=== PATIENT | female | born 1990 | race Caucasian/White ===

== ENCOUNTER 2021-09-19 11:45 | Outpatient (CLI) | payer BC, SELFPAY ==
[2021-09-19 12:04] VITALS: BP 129/76; PULSE 97
[2021-09-19 12:16] VITALS: BMI 38.9
--- NOTE | 2021-09-19 13:00 | OB.TRI.HP_ITS ---
HPI - General General Date of Service: 09/19/21 HPI Narrative ARYA CAZARES, is a 31 F who presents with possible vaginal bleeding. denies ctxs or dysuria. Maternal Data Information Final KATELYN: 11/22/21 Gestational age: 30&6 [facility] Medical History (Updated 09/19/21 @ 13:[address] Omer Ward MD) Hematuria Threatened premature labor Home Medications 09/19/21 [History Last Taken 09/18/21] aspirin 81 mg capsule mg 09/19/21 [History Last Taken 09/18/21] ferrous sulfate 325 mg (65 mg iron) tablet (iron) mg 09/19/21 [History Last Taken 09/18/21] magnesium 09/19/21 [History Last Taken 09/18/21] sertraline 50 mg tablet (Zoloft) 50 mg PO DAILY 09/19/21 [History Last Taken 09/18/21] Allergy/AdvReac Type Severity Reaction Status Date / Time No Known Allergies Allergy Verified 09/19/21 12:18 Physical Exam Narrative: cvx - closed/20/-3 NST FHR Rate Baby A Baseline: 135 Variability:: Moderate Accelerations:: 15 x 15 Decelerations:: Variable NST Reactive:: Yes Uterine Activity:: Quiet Assessment & Plan (1) Threatened premature labor: (2) Hematuria: PLAN: Plan No evidence vaginal bleeding on SSE or BME Suspect hematuria - send UA & urine culture Reactive NST
[2021-09-19 13:32] LABS: Mucous, Urine 0 SEEN /hpf (<or=2+); White Blood Cells 0 SEEN /hpf (0-5)
[2021-09-19 13:58] LABS: Color, Urine Brown (Yellow); Glucose, Dipstick Normal (Normal); Ketone-Dipstick 5 mg/dl (Negative); Leukocyte Esterase-Dipstick 100 /ul (Negative); Nitrite-Dipstick Negative (Negative); Occult Blood-Urine 250 /ul (Negative); Protein-Dipstick 100 mg/dl (Negative); Specific Gravity, Urine 1.015 (1.002-1.030); Urine Bilirubin Dipstick Negative (Negative); Urine Clarity Turbid (Clear); Urine Urobilinogen Normal (Normal)
[2021-09-19 14:12] LABS: Bacteria 2+ /hpf (None Seen); Red Blood Cells-Urine > 100 SEEN /hpf (0-5); Squamous Epithelial Cells - UA 0-5 SEEN /hpf (5-10)
== END 2021-09-19 13:00 | disposition home or self-care (01) ==
LOC: WPOUT 11:56 → WP 11:57
PROVIDERS: Visit Provider Obstetrics & Gynecology
DX: O47.03 False labor before 37 completed weeks of gestation, third trimester (principal); O99.891 Other specified diseases and conditions complicating pregnancy; R31.9 Hematuria, unspecified; Z79.82 Long term (current) use of aspirin; Z3A.30 30 weeks gestation of pregnancy; Z79.899 Other long term (current) drug therapy
CPT/HCPCS: 59025; 59050; 81001; 87086; 87088; 99218; G0378

== ENCOUNTER 2021-10-18 14:15 | Outpatient (CLI) | payer BC, SELFPAY ==
[2021-10-18] VITALS (8 sets, daily range): BP systolic 129–146; BP diastolic 82–87; PULSE 78–93; TEMP 36.7; BMI 39.8
[2021-10-18 15:03] LABS: Hematocrit 31.8 % (37-47); Hemoglobin 10.9 g/dL (12.0-15.0); Mean Corp Hgb Conc 34.3 g/dL (32-36); Mean Corpuscular Hgb 30.2 pg (27.0-32.0); Mean Corpuscular Volume 88.1 fL (81-99); Mean Platelet Vol. 8.8 fl (6.2-12.0); Platelet Count 236 K/mm3 (150-450); RBC Distribution Width CV 13.5 % (11.6-14.6); RBC Distribution Width SD 43.4 fl (35.1-43.9); Red Blood Count 3.61 M/mm3 (4.2-5.4); White Blood Count 9.4 K/mm3 (4.4-11.0)
[2021-10-18 15:20] LABS: Protein:Creat Ratio 217 mg/g CRE (0-200)
[2021-10-18 15:28] LABS: Prothrombin Time (Protime)PT. 12.8 SECONDS (11.7-14.9)
[2021-10-18 15:58] LABS: AST(SGOT) 23 U/L (15-37); Alanine Aminotransfer ALT/SGPT 23 U/L (13-56); Creatinine, Serum 0.54 mg/dL (0.55-1.02); EST Glomerular Filtration Rate 140 mL/min (>60); Est Glom Filt Rate - Afr Amer 169 mL/min (>60); Estimated Creatinine Clearance 126.01 ml/min; Uric Acid 4.3 mg/dL (2.6-6.0)
--- NOTE | 2021-10-18 16:30 | OB.TRI.HP_ITS ---
HPI - General HPI Narrative ARYA CAZARES, is a 31 F at 35.0 weeks who was sent over from office visit for elevated blood pressures. Pressures ranging 130-140's / 80-90's. She is here for monitoring of blood pressure and preeclampsia labs. Maternal Data Information KATELYN Calculator Estimated Delivery Date Method Current WG Current Estimate 11/22/21 Manual 35w 0d Final KATELYN: 11/22/21 PFSH PFS Medical History Hematuria Threatened premature labor Home Medications 09/19/21 [History Last Taken 10/17/21] aspirin 81 mg capsule mg 09/19/21 [History Last Taken 10/17/21] ferrous sulfate 325 mg (65 mg iron) tablet (iron) mg 09/19/21 [History Last Taken 10/18/21] magnesium 09/19/21 [History Last Taken 10/17/21] sertraline 50 mg tablet (Zoloft) 50 mg PO DAILY 09/19/21 [History Last Taken 10/18/21] docusate sodium 250 mg capsule (Stool Softener) 250 mg PO DAILY 10/18/21 [History Last Taken Unknown] Allergy/AdvReac Type Severity Reaction Status Date / Time No Known Allergies Allergy Verified 10/18/21 14:54 Visit Details OB Flowsheet Initial Weight: Not Recorded Date -?-?-?-?-?-?-?-?-?-?-?-?- EGA Weight BP Urine Prot -?-?-?-?-?-?-?-?-?-?-?-?- Glucose FHR FuHt Pres Dilation -?-?-?-?-?-?-?-?-?-?-?-?- Effaced St Visit Note 10/18/21 -?-?-?-?-?-?-?-?-?-?-?-?- 35w 0d 225 lb 143/85 129/84 142/86 137/87 135/82 142/85 146/85 141/83 -?-?-?-?-?-?-?-?-?-?-?-?- -?-?-?-?-?-?-?-?-?-?-?-?- ROS Eyes Eyes: Denies blurry vision Cardiovascular Cardiovascular: Reports none; Denies chest pain at rest, chest pain with activity or dizziness Respiratory/Chest Respiratory/Chest: Denies cough or dyspnea Gastrointestinal Gastrointestinal: Reports none and other; Denies diarrhea or vomiting Genitourinary Genitourinary: Denies dysuria Musculoskeletal Musculoskeletal: Reports none Integumentary Integumentary: Reports none; Denies rash Neurologic Neurologic: Denies dizziness, headache(s) or other visual disturbances Psychiatric Psychiatric: Reports none Physical Exam Const alert and no apparent distress General Appearance: cooperative Orientation / Consciousness: awake Exam Limitations: no limitations HEENT normocephalic Eyes General Eye: normal appearance of both eyes Neck full ROM Chest inspection of chest normal Resp normal respiratory effort and normal air movement Effort and Inspection: symmetric chest movement Auscultation: clear to auscultation bilaterally Cardio regular rate GI soft to palpation, non-tender and non-distended Inspection: and other Back/Spine normal ROM Extremity full ROM, normal capillary refill and no calf tenderness Skin no rashes or lesions noted Neuro oriented x3 and CN's II-XII intact bilaterally Psych mental status grossly normal NST FHR Rate Baby A Baseline: 140 Variability:: Moderate Accelerations:: 15 x 15 Decelerations:: None NST Reactive:: Yes FHR Category:: Category I Uterine Activity:: irritability Assessment & Plan (1) 35 weeks gestation of : (2) Elevated blood pressure affecting , antepartum: PLAN: Plan PIH labs within normal ranges BP's ranging 130-140/ 80's Denies headache NST reactive- Category 1 tracing D/C home with follow up in office early next week Dr. Colbert notified of plan of care
== END 2021-10-18 16:37 | disposition home or self-care (01) ==
LOC: WPOUT 14:21 → WP 14:22
PROVIDERS: Visit Provider Advanced Practice Midwife
DX: O99.891 Other specified diseases and conditions complicating pregnancy (principal); R03.0 Elevated blood-pressure reading, without diagnosis of hypertension; Z3A.35 35 weeks gestation of pregnancy
CPT/HCPCS: 59025; 59050; 82565; 82570; 84156; 84450; 84460; 84550; 85027; 85610; 85730; 99218; G0378

== ENCOUNTER 2021-11-05 08:30 | Inpatient (IN) | payer BC, SELFPAY ==
[2021-11-05] VITALS (126 sets, daily range): BP systolic 121–176; BP diastolic 8–105; PULSE 74–233; RESP 16–18; TEMP 35.7–36.7; O2SAT 82–100; BMI 40.4
--- NOTE | 2021-11-05 | PLAC_PTH ---
PATIENT: ARYA CAZARES LOC: [facility] U#:[id number] AGE/SX: 31/F ROOM: WP017 RE11/05/[address]: Dr. Regine Thakkar MD : 1990 BED: 1 DIS: 11/08/2021 SPEC #: [id number] RECD: 11/06/21 02:04 STATUS: DIONICIO TREVIÑOStuart #: [id number] NICOLE: 11/05/21 00:[address]: Regine Thakkar DEPT: SURGICAL PATHOLOGY RECD BY: Erasmo Palumbo Tissues: Placenta, NOS Procedures: Surgery Specimen Level V HEADER OPERATION: Primary section PRE-OP DIAGNOSIS: Pre-eclampsia TISSUE SUBMITTED: Placenta MICROSCOPIC DIAGNOSIS Garcia placenta (512 gm): Umbilical cord ? trivascular with no inflammation. Placental membranes - No pathologic change. Placental disc ? Mando bales. AM:frank 11/07/2021 MICROSCOPIC DESCRIPTION Slides are reviewed. GROSS DESCRIPTION SPECIMEN: PLACENTA / CLINICAL INFORMATION: A. Weight: kg B. Gestational Age: weeks C. Sex: PLACENTAL WEIGHT (POST FIXATION): 512 gm PLACENTAL DIMENSIONS: 21 x 18 x 3 cm PLACENTAL SHAPE: Usual ovoid PLACENTAL WEIGHT FOR GESTATIONAL AGE: Within 10-99th percentile MEMBRANES - Present A. Insertion: Marginal B. Site of rupture from edge: 5.5 cm from edge of placental disc C. Color of membrane: Galvez-guallpa D. Abnormalities: None UMBILICAL CORD - Present A. Color: Galvez-guallpa B. Insertion: Eccentric C. Length: 47 cm D. Diameter: 1.3 cm E. Number of vessels: Three F. Abnormalities: None PLACENTAL DISC - Present A. Color of surface: Galvez-guallpa B. surface abnormalities: None C. Maternal cotyledons: Intact with minimal tears D. Attached retro placental clot: No clot E. Cut surface: Dark red and spongy F. Lesions: None G. Separate clot: 5 x 3 x 1.5 cm SECTIONS SUBMITTED: 1. Umbilical cord ( end notched) 2. Umbilical cord, placental end 3. Membrane roll 4. Placental disc, and maternal surfaces 5. Placental disc, and maternal surfaces 6. Placental disc, and maternal surfaces AM:frank 11/06/2021 TC:5 CPT: 66391
[2021-11-05] MEDS: 0.9% Saline Lock 10 ML Syringe IV (09:11)
[2021-11-05 09:25] LABS: Absolute Lymphocyte Count 1.44 X10^3/uL (0.83-4.51); Absolute Neutrophil Count 6.1 X10^3/uL (2.0-7.7); Basophil# 0.01 X10^3/uL; Basophil% 0.1 % (0-1); Eosinophil# 0.07 X10^3/uL; Eosinophils% 0.9 % (0-5); Hematocrit 33.7 % (37-47); Hemoglobin 11.5 g/dL (12.0-15.0); Lymphocyte # 1.44 X10^3/ul (0.83-4.51); Lymphocyte % 17.7 % (19-41); Mean Corp Hgb Conc 34.1 g/dL (32-36); Mean Corpuscular Hgb 30.2 pg (27.0-32.0); Mean Corpuscular Volume 88.5 fL (81-99); Mean Platelet Vol. 9.4 fl (6.2-12.0); Monocyte# 0.48 X10^3/uL; Monocyte% 5.9 % (0-10); NRBC Flagged by Analyzer 0 % (0-5); Neutrophil # 6.09 X10^3/uL (2.7-7.7); Neutrophil % 74.8 % (47-70); Platelet Count 228 K/mm3 (150-450); RBC Distribution Width CV 13.8 % (11.6-14.6); RBC Distribution Width SD 44.7 fl (35.1-43.9); Red Blood Count 3.81 M/mm3 (4.2-5.4); White Blood Count 8.1 K/mm3 (4.4-11.0)
[2021-11-05] MEDS: miSOPROStol 25 MCG TABLET VAGINAL (10:09)
[2021-11-05] MEDS: Mag Hydrox/Al Hydrox/Simeth 30 ML UDC PO (10:55)
[2021-11-05 13:12] LABS: ALB/GLOB Ratio 0.8 RATIO (0.9-2.4); AST(SGOT) 19 U/L (15-37); Alanine Aminotransfer ALT/SGPT 24 U/L (13-56); Albumin, Serum 2.7 g/dL (3.2-5.0); Alkaline Phosphatase 110 U/L (45-117); Anion Gap 10 (5-15); BUN 6 mg/dL (7-18); BUN/Creat Ratio 8.7 RATIO (10-20); Calcium,Total 8.9 mg/dL (8.5-10.1); Chloride 110 mmol/L (98-107); Creatinine, Serum 0.69 mg/dL (0.55-1.02); EST Glomerular Filtration Rate 106 mL/min (>60); Est Glom Filt Rate - Afr Amer 128 mL/min (>60); Estimated Creatinine Clearance 98.62 ml/min; Globulin 3.5 g/dL (2.2-4.2); Glucose 104 mg/dL (74-106); Potassium 3.7 mmol/L (3.5-5.1); Protein, Total 6.2 g/dL (6.4-8.2); Sodium Level 141 mmol/L (136-145)
[2021-11-05] MEDS: miSOPROStol 25 MCG TABLET 50 MCG VAGINAL (14:13)
[2021-11-05] MEDS: Labetalol (Prefilled) 20 MG/4 ML IV (14:35)
[2021-11-05] MEDS: Lactated Ringers 1,000 ML 15 ML IV (14:35)
[2021-11-05] MEDS: Magnesium Sulfate 4gm/100mL 4 GM/100 ML IV.SOLN. IV (14:41)
[2021-11-05] MEDS: Magnesium Sulfate 4gm/100mL 2 GM/50 ML IV.SOLN. IV (14:59)
[2021-11-05] MEDS: Labetalol (Prefilled) 20 MG/4 ML 40 MG IV (15:11)
[2021-11-05] MEDS: Magnesium Sulfate 20 GM/500 ML BAG IV (15:16)
[2021-11-05] MEDS: Ondansetron 4 MG/2 ML Vial IV (15:27)
[2021-11-05] MEDS: Labetalol 200 MG Tablet PO (16:08)
[2021-11-05] MEDS: Sertraline 50 MG Tablet PO (16:19)
[2021-11-05] MEDS: Acetaminophen 500 MG Tablet PO (16:28)
--- NOTE | 2021-11-05 17:32 | PCM.HP.OB ---
HPI - General General Date of Admission: 11/05/21 Date of Service: 11/05/21 Chief Complaint: hypertension in HPI Narrative ARYA CAZARES, is a 31 female 1 para 0 with a EDC of 11/22/2021 presents at 37-4/7 weeks gestation complaining of elevated blood pressures. She denied any headache or visual changes when she arrived. She had good movement. She denied any contractions. Patient now states she has a severe frontal throbbing headache not relieved with Tylenol and ice packs. She denies any visual changes. Maternal Data Information KATELYN Calculator Estimated Delivery Date Method Current WG Current Estimate 11/22/21 Manual 37w 4d Final KATELYN: 11/13/21 Gestational age: 37 4/7 [facility] Medical History (Updated 11/05/21 @ 17:[address] Regine Thakkar MD) Anemia affecting first Anxiety COVID-19 Depression Gestational HTN Hematuria Melanoma Obesity Ovarian cyst PCOS (polycystic ovarian syndrome) PTSD (post-traumatic stress disorder) Threatened premature labor Uterine polyp Home Medications 1 tab PO/SL DAILY 09/19/21 [History Last Taken 11/04/21 08:00 1 tab] aspirin 81 mg capsule 81 mg PO DAILY covid in 09/19/21 [History Last Taken 11/03/21 22:00 1 tab] ferrous sulfate 325 mg (65 mg iron) tablet (iron) 325 mg PO DAILY anemia 09/19/21 [History Last Taken 11/05/21 08:00 1 tab] sertraline 50 mg tablet (Zoloft) 50 mg PO DAILY anxiety/depression 09/19/21 [History Last Taken 11/04/21 14:00 1 tab] docusate sodium 250 mg capsule (Stool Softener) 250 mg PO DAILY constipation 10/18/21 [History Last Taken 11/04/21 08:00 1 tab] Allergy/AdvReac Type Severity Reaction Status Date / Time No Known Allergies Allergy Verified 10/18/21 14:54 Surgical History (Updated 11/05/21 @ 10:17 by Sabra Petersen) H/O dilation and curettage H/O laparoscopy [place] teeth extracted Social History Smoking Status: Never smoker History Elective abortions Hx Para 0 Spontaneous abortions Hx # Term Pregnancies Ectopic pregnancies Hx # Pregnancies Multiple births # of living children ROS ROS Narrative + Headache Constitutional Constitutional: Denies fatigue, fever(s) or malaise Eyes Eyes: Denies change in vision ENT HEENT: Denies dizziness or headache(s) Cardiovascular Cardiovascular: Denies chest pain, dyspnea or lightheadedness Respiratory/Chest Respiratory/Chest: Denies cough or dyspnea Gastrointestinal Gastrointestinal: Denies change in bowel habits Genitourinary Genitourinary: Denies burning urination or genital lesions Integumentary Integumentary: Denies rash Neurologic Neurologic: Denies confusion, numbness or weakness Vital Signs Vital Signs Vital Signs: 11/05/21 08:58 11/05/21 08:58 11/05/21 09:02 Temperature Temperature Source Pulse Rate 102 H 104 H Respiratory Rate Respiratory Effort Respiratory Depth Respiratory Pattern Blood Pressure 176/105 H Blood Pressure Mean BP Systolic 176 BP Diastolic 105 Blood Pressure Source Blood Pressure Position Blood Pressure Location Pulse Ox Oxygen Delivery Method 11/05/21 09:02 11/05/21 08:59 11/05/21 08:59 Temperature Temperature Source Temporal Pulse Rate Respiratory Rate Respiratory Effort Respiratory Depth Respiratory Pattern Blood Pressure Blood Pressure Mean BP Systolic BP Diastolic Blood Pressure Source Blood Pressure Position Blood Pressure Location Pulse Ox 99 99 Oxygen Delivery Method 11/05/21 08:59 11/05/21 09:13 11/05/21 09:13 Temperature 97.7 F L Temperature Source Pulse Rate 101 H Respiratory Rate Respiratory Effort Respiratory Depth Respiratory Pattern Blood Pressure 168/104 H Blood Pressure Mean BP Systolic 168 BP Diastolic 104 Blood Pressure Source Blood Pressure Position Blood Pressure Location Pulse Ox Oxygen Delivery Method 11/05/21 09:30 11/05/21 09:30 11/05/21 09:51 Temperature Temperature Source Pulse Rate 93 Respiratory Rate Respiratory Effort Respiratory Depth Respiratory Pattern Blood Pressure 145/96 H 168/103 H Blood Pressure Mean BP Systolic 145 168 BP Diastolic 96 103 Blood Pressure Source Blood Pressure Position Blood Pressure Location Pulse Ox Oxygen Delivery Method 11/05/21 09:51 11/05/21 10:07 11/05/21 10:07 Temperature Temperature Source Pulse Rate 99 94 Respiratory Rate Respiratory Effort Respiratory Depth Respiratory Pattern Blood Pressure 159/93 H Blood Pressure Mean BP Systolic 159 BP Diastolic 93 Blood Pressure Source Blood Pressure Position Blood Pressure Location Pulse Ox Oxygen Delivery Method 11/05/21 10:22 11/05/21 10:22 11/05/21 10:36 Temperature Temperature Source Pulse Rate 90 Respiratory Rate Respiratory Effort Respiratory Depth Respiratory Pattern Blood Pressure 144/95 H 150/97 H Blood Pressure Mean BP Systolic 144 150 BP Diastolic 95 97 Blood Pressure Source Blood Pressure Position Blood Pressure Location Pulse Ox Oxygen Delivery Method 11/05/21 10:36 11/05/21 11:47 11/05/21 11:47 Temperature Temperature Source Pulse Rate 90 86 Respiratory Rate Respiratory Effort Respiratory Depth Respiratory Pattern Blood Pressure 144/99 H Blood Pressure Mean BP Systolic 144 BP Diastolic 99 Blood Pressure Source Blood Pressure Position Blood Pressure Location Pulse Ox Oxygen Delivery Method 11/05/21 11:51 11/05/21 11:51 11/05/21 12:48 Temperature Temperature Source Pulse Rate 97 Respiratory Rate Respiratory Effort Respiratory Depth Respiratory Pattern Blood Pressure 139/105 H Blood Pressure Mean BP Systolic 139 BP Diastolic 105 Blood Pressure Source Blood Pressure Position Blood Pressure Location Pulse Ox 97 Oxygen Delivery Method 11/05/21 12:48 11/05/21 12:48 11/05/21 12:50 Temperature Temperature Source Temporal Pulse Rate 86 89 Respiratory Rate Respiratory Effort Respiratory Depth Respiratory Pattern Blood Pressure Blood Pressure Mean BP Systolic BP Diastolic Blood Pressure Source Blood Pressure Position Blood Pressure Location Pulse Ox Oxygen Delivery Method 11/05/21 12:50 11/05/21 12:48 11/05/21 14:08 Temperature 97.5 F L Temperature Source Pulse Rate 103 H Respiratory Rate Respiratory Effort Respiratory Depth Respiratory Pattern Blood Pressure Blood Pressure Mean BP Systolic BP Diastolic Blood Pressure Source Blood Pressure Position Blood Pressure Location Pulse Ox 97 Oxygen Delivery Method 11/05/21 14:08 11/05/21 14:05 11/05/21 14:10 Temperature Temperature Source Temporal Pulse Rate Respiratory Rate Respiratory Effort Respiratory Depth Respiratory Pattern Blood Pressure 170/102 H Blood Pressure Mean BP Systolic 170 BP Diastolic 102 Blood Pressure Source Blood Pressure Position Blood Pressure Location Pulse Ox 98 Oxygen Delivery Method 11/05/21 14:10 11/05/21 14:05 11/05/21 14:25 Temperature 97.7 F L Temperature Source Pulse Rate 98 Respiratory Rate Respiratory Effort Respiratory Depth Respiratory Pattern Blood Pressure 163/101 H Blood Pressure Mean BP Systolic 163 BP Diastolic 101 Blood Pressure Source Blood Pressure Position Blood Pressure Location Pulse Ox Oxygen Delivery Method 11/05/21 14:25 11/05/21 14:40 11/05/21 14:40 Temperature Temperature Source Pulse Rate 96 98 Respiratory Rate Respiratory Effort Respiratory Depth Respiratory Pattern Blood Pressure 149/92 H Blood Pressure Mean BP Systolic 149 BP Diastolic 92 Blood Pressure Source Blood Pressure Position Blood Pressure Location Pulse Ox Oxygen Delivery Method 11/05/21 14:42 11/05/21 14:42 11/05/21 14:44 Temperature Temperature Source Pulse Rate 233 H 99 Respiratory Rate Respiratory Effort Respiratory Depth Respiratory Pattern Blood Pressure Blood Pressure Mean BP Systolic BP Diastolic Blood Pressure Source Blood Pressure Position Blood Pressure Location Pulse Ox 82 Oxygen Delivery Method 11/05/21 14:44 11/05/21 14:47 11/05/21 14:47 Temperature Temperature Source Pulse Rate 98 Respiratory Rate Respiratory Effort Respiratory Depth Respiratory Pattern Blood Pressure 157/95 H Blood Pressure Mean BP Systolic 157 BP Diastolic 95 Blood Pressure Source Blood Pressure Position Blood Pressure Location Pulse Ox 97 Oxygen Delivery Method 11/05/21 14:49 11/05/21 14:49 11/05/21 14:54 Temperature Temperature Source Pulse Rate 100 96 Respiratory Rate Respiratory Effort Respiratory Depth Respiratory Pattern Blood Pressure Blood Pressure Mean BP Systolic BP Diastolic Blood Pressure Source Blood Pressure Position Blood Pressure Location Pulse Ox 97 Oxygen Delivery Method 11/05/21 14:54 11/05/21 14:58 11/05/21 14:58 Temperature Temperature Source Pulse Rate 96 Respiratory Rate Respiratory Effort Respiratory Depth Respiratory Pattern Blood Pressure Blood Pressure Mean BP Systolic BP Diastolic Blood Pressure Source Blood Pressure Position Blood Pressure Location Pulse Ox 97 94 Oxygen Delivery Method 11/05/21 14:58 11/05/21 14:59 11/05/21 14:59 Temperature Temperature Source Pulse Rate 97 Respiratory Rate Respiratory Effort Respiratory Depth Respiratory Pattern Blood Pressure 163/92 H Blood Pressure Mean BP Systolic 163 BP Diastolic 92 Blood Pressure Source Blood Pressure Position Blood Pressure Location Pulse Ox 97 Oxygen Delivery Method 11/05/21 15:04 11/05/21 15:04 11/05/21 15:07 Temperature Temperature Source Pulse Rate 100 Respiratory Rate Respiratory Effort Respiratory Depth Respiratory Pattern Blood Pressure 159/92 H Blood Pressure Mean BP Systolic 159 BP Diastolic 92 Blood Pressure Source Blood Pressure Position Blood Pressure Location Pulse Ox 97 Oxygen Delivery Method 11/05/21 15:07 11/05/21 15:09 11/05/21 15:09 Temperature Temperature Source Pulse Rate 96 100 Respiratory Rate Respiratory Effort Respiratory Depth Respiratory Pattern Blood Pressure Blood Pressure Mean BP Systolic BP Diastolic Blood Pressure Source Blood Pressure Position Blood Pressure Location Pulse Ox 96 Oxygen Delivery Method 11/05/21 15:14 11/05/21 15:14 11/05/21 15:19 Temperature Temperature Source Pulse Rate 98 92 Respiratory Rate Respiratory Effort Respiratory Depth Respiratory Pattern Blood Pressure Blood Pressure Mean BP Systolic BP Diastolic Blood Pressure Source Blood Pressure Position Blood Pressure Location Pulse Ox 96 Oxygen Delivery Method 11/05/21 15:19 11/05/21 15:21 11/05/21 15:21 Temperature Temperature Source Pulse Rate 92 Respiratory Rate Respiratory Effort Respiratory Depth Respiratory Pattern Blood Pressure Blood Pressure Mean BP Systolic BP Diastolic Blood Pressure Source Blood Pressure Position Blood Pressure Location Pulse Ox 97 94 Oxygen Delivery Method 11/05/21 15:24 11/05/21 15:24 11/05/21 15:26 Temperature Temperature Source Pulse Rate 91 Respiratory Rate Respiratory Effort Respiratory Depth Respiratory Pattern Blood Pressure 144/88 H Blood Pressure Mean BP Systolic 144 BP Diastolic 88 Blood Pressure Source Blood Pressure Position Blood Pressure Location Pulse Ox 96 Oxygen Delivery Method 11/05/21 15:26 11/05/21 15:29 11/05/21 15:29 Temperature Temperature Source Pulse Rate 89 95 Respiratory Rate Respiratory Effort Respiratory Depth Respiratory Pattern Blood Pressure Blood Pressure Mean BP Systolic BP Diastolic Blood Pressure Source Blood Pressure Position Blood Pressure Location Pulse Ox 97 Oxygen Delivery Method 11/05/21 15:34 11/05/21 15:34 11/05/21 15:36 Temperature Temperature Source Pulse Rate 95 Respiratory Rate Respiratory Effort Respiratory Depth Respiratory Pattern Blood Pressure 146/91 H Blood Pressure Mean BP Systolic 146 BP Diastolic 91 Blood Pressure Source Blood Pressure Position Blood Pressure Location Pulse Ox 95 Oxygen Delivery Method 11/05/21 15:36 11/05/21 15:36 11/05/21 15:39 Temperature Temperature Source Pulse Rate 90 94 Respiratory Rate Respiratory Effort Respiratory Depth Respiratory Pattern Blood Pressure Blood Pressure Mean BP Systolic BP Diastolic Blood Pressure Source Blood Pressure Position Blood Pressure Location Pulse Ox 94 Oxygen Delivery Method 11/05/21 15:39 11/05/21 15:47 11/05/21 15:47 Temperature Temperature Source Pulse Rate 90 Respiratory Rate Respiratory Effort Respiratory Depth Respiratory Pattern Blood Pressure 139/89 H Blood Pressure Mean BP Systolic 139 BP Diastolic 89 Blood Pressure Source Blood Pressure Position Blood Pressure Location Pulse Ox 96 Oxygen Delivery Method 11/05/21 15:56 11/05/21 15:56 11/05/21 16:06 Temperature Temperature Source Pulse Rate 89 Respiratory Rate Respiratory Effort Respiratory Depth Respiratory Pattern Blood Pressure 138/85 H 140/81 H Blood Pressure Mean BP Systolic 138 140 BP Diastolic 85 81 Blood Pressure Source Blood Pressure Position Blood Pressure Location Pulse Ox Oxygen Delivery Method 11/05/21 16:06 11/05/21 16:11 11/05/21 16:11 Temperature Temperature Source Pulse Rate 88 91 Respiratory Rate Respiratory Effort Respiratory Depth Respiratory Pattern Blood Pressure Blood Pressure Mean BP Systolic BP Diastolic Blood Pressure Source Blood Pressure Position Blood Pressure Location Pulse Ox 94 Oxygen Delivery Method 11/05/21 16:16 11/05/21 16:16 11/05/21 16:31 Temperature Temperature Source Pulse Rate 92 Respiratory Rate Respiratory Effort Respiratory Depth Respiratory Pattern Blood Pressure 141/83 H 155/88 H Blood Pressure Mean BP Systolic 141 155 BP Diastolic 83 88 Blood Pressure Source Blood Pressure Position Blood Pressure Location Pulse Ox Oxygen Delivery Method 11/05/21 16:31 11/05/21 16:31 11/05/21 16:31 Temperature 97.5 F L Temperature Source Temporal Pulse Rate 91 Respiratory Rate Respiratory Effort Respiratory Depth Respiratory Pattern Blood Pressure Blood Pressure Mean BP Systolic BP Diastolic Blood Pressure Source Blood Pressure Position Blood Pressure Location Pulse Ox Oxygen Delivery Method 11/05/21 16:46 11/05/21 16:46 11/05/21 17:02 Temperature Temperature Source Pulse Rate 86 Respiratory Rate Respiratory Effort Respiratory Depth Respiratory Pattern Blood Pressure 147/86 H 137/79 H Blood Pressure Mean BP Systolic 147 137 BP Diastolic 86 79 Blood Pressure Source Blood Pressure Position Blood Pressure Location Pulse Ox Oxygen Delivery Method 11/05/21 17:02 11/05/21 17:16 11/05/21 17:16 Temperature Temperature Source Pulse Rate 79 88 Respiratory Rate Respiratory Effort Respiratory Depth Respiratory Pattern Blood Pressure 141/84 H Blood Pressure Mean BP Systolic 141 BP Diastolic 84 Blood Pressure Source Blood Pressure Position Blood Pressure Location Pulse Ox Oxygen Delivery Method 11/05/21 17:29 11/05/21 17:29 11/05/21 14:41 Temperature Temperature Source Pulse Rate 91 Respiratory Rate 18 Respiratory Effort Respiratory Depth Respiratory Pattern Blood Pressure Blood Pressure Mean BP Systolic BP Diastolic Blood Pressure Source Blood Pressure Position Blood Pressure Location Pulse Ox 96 Oxygen Delivery Method 11/05/21 14:48 11/05/21 14:58 11/05/21 14:15 Temperature 96.3 F L Temperature Source Temporal Pulse Rate 100 95 Respiratory Rate 18 18 Respiratory Effort Normal Respiratory Depth Normal Respiratory Pattern Normal Blood Pressure 157/95 H 163/92 H Blood Pressure Mean 115 115 BP Systolic BP Diastolic Blood Pressure Source Monitor Monitor Blood Pressure Position Sitting Semi-Fowlers Blood Pressure Location Right Arm Right Arm Pulse Ox 97 94 Oxygen Delivery Method Room Air Room Air 11/05/21 15:26 Temperature Temperature Source Pulse Rate 89 Respiratory Rate 16 Respiratory Effort Respiratory Depth Respiratory Pattern Blood Pressure 144/88 H Blood Pressure Mean 106 BP Systolic BP Diastolic Blood Pressure Source Monitor Blood Pressure Position Blood Pressure Location Pulse Ox 96 Oxygen Delivery Method Room Air Weight Weight: 103.6 kg Body Mass Index (BMI) 40.4 Physical Exam Const alert and no apparent distress General Appearance: cooperative HEENT normocephalic Resp normal respiratory effort Cardio regular rate GI soft to palpation GI Narrative: gravid, nontender, appropriate for gestational age Extremity no calf tenderness General Extremity: edema Skin no wounds Rashes: No rashes noted Psych activity/motor behavior normal Labs Labs Labs: Blood Type O POSITIVE Antibody Screen NEGATIVE Hct 33.7 % (37-47) L Hgb 11.5 g/dL (12.0-15.0) L Assessment & Plan (1) 37 weeks gestation of : PLAN: Patient now on magnesium prophylaxis for severe preeclampsia. Also received labetalol hypertensive emergency protocol medications. Cervix is still closed, patient has received 2 doses of Cytotec without any significant abdominal cramping. Patient has significant anxiety and discomfort with pelvic exams. I discussed with the patient that with severe preeclampsia and an unfavorable cervix in a nulliparous patient, there is a significantly elevated risk of primary . At this point, it would be clinically very reasonable with an LGA fetus and the above risk factors including a BMI greater than 40 to proceed with primary section. Risk benefits and alternatives to this were discussed with the patient and her , their questions were answered to their satisfaction and they desire to proceed. (2) Pre-eclampsia, severe: (3) Maternal obesity affecting , antepartum: (4) BMI 40.0-44.9, adult: (5) Unfavorable cervix in term :
[2021-11-05] MEDS: LACTATED RINGERS 500 ML 999 ML IV (19:08)
[2021-11-05] MEDS: fentaNYL-bupivacaine (epidural) 100 ML BAG EPIDURAL (19:58)
[2021-11-05] MEDS: Sodium Citrate/Citric Acid 30 ML UDC PO (20:10)
[2021-11-05] MEDS: Cefazolin 2 GM in 0.9% Normal Saline 100 ML IV (20:25)
--- NOTE | 2021-11-05 21:17 | OP.PCM_ITS ---
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 She was prepped and draped in the dorsal supine position with a leftward tilt. A Pfannenstiel skin incision was made approximately 2 cm above the symphysis pubis and carried through to underlying layer fascia with the scalpel. The fascia was incised incised in the midline and extended laterally with the Black scissors. The fascia was dissected off the rectus muscles with blunt and sharp dissection. The rectus muscles were in the midline and the peritoneum was entered bluntly. The peritoneal incision was stretched and the bladder blade was placed. The uterine incision was made in a low transverse fashion with the scalpel and extended superiorly and inferiorly with blunt dissection. The amniotic membranes were ruptured bluntly and clear amniotic fluid returned. The infant's head was brought to the incision in the flexed position and delivered without d ifficulty. The remainder of the infant was delivered with gentle traction and fundal pressure in the standard fashion. The mouth and nares were bulb suctioned. The cord was clamped and cut as the was stimulated. Cord clamping was delayed for approximately 30 seconds. The infant was handed off to the waiting nursing staff. The placenta was delivered with fundal massage and gentle traction in the standard fashion. The uterus was exteriorized and cleared of all clots and debris. The cervix was dilated with a ring forcep. The uterine incision was closed with #1 Vicryl in a running locked fashion. A second layer of the same suture was used in an imbricating fashion. 2-0 Vicryl [id number] sutures were needed near the midline and some sinuses to obtain hemostasis. The inci ramonita was examined and was found to be hemostatic. The uterus was placed back into the peritoneal cavity and hemostasis was again confirmed. The rectus muscles were examined and any bleeding was Bovie cauterized. The parietal peritoneum and rectus muscles were closed en bloc with an 0 Vicryl running suture. The surgical teams outer gloves were then changed. The rectus fascia was examined and any bleeding was Bovie cauterized and the rectus fascia was closed with looped 1 PDS suture in a running standard fashion. The subcutaneous tissue was examining and any bleeding was Bovie cauterized. The subcutaneous tissue was reapproximated with 3-0 Vicryl suture. The skin was closed in a subcuticular fashion with Monocryl suture. I performed the entire procedure with assistance. All sponge, lap, and needle counts were correct. The patient was taken to her room for recovery in a stable condition. Apgars were not available at the time of the entry of this note. Presentation: Positive for Vertex Amniotic Membrane Rupture Type: Artificial Amniotic Fluid Description: Clear Placental Delivery Description: Expressed Placenta Disposition: Sent to Pathology Cord Vessel Description: 3 Vessels Cord Entanglement: None A Gender: Male (Daxton) Delayed Cord Clamping: Yes Complications Complications: none
[2021-11-05] MEDS: Oxytocin 30 units/NS 500 ml 30 UNITS/500 ML IV.SOLN 167 UNITS IV (21:30)
[2021-11-05] MEDS: Ketorolac 30 MG/ML Syringe IV (22:25)
[2021-11-05] MEDS: Acetaminophen 500 MG Tablet 1000 MG PO (23:06)
[2021-11-06] VITALS (214 sets, daily range): BP systolic 114–135; BP diastolic 59–81; PULSE 70–127; RESP 15–20; TEMP 36.1–36.7; O2SAT 16–100
[2021-11-06] MEDS: Lactated Ringers 1,000 ML 100 ML IV (00:40)
[2021-11-06] MEDS: Magnesium Sulfate 20 GM/500 ML BAG IV ×2 (00:55→10:22)
[2021-11-06] MEDS: Acetaminophen 500 MG Tablet 1000 MG PO ×4 (04:39→22:41)
[2021-11-06] MEDS: Ketorolac 30 MG/ML Syringe IV ×3 (04:39→16:34)
[2021-11-06 06:17] LABS: Hematocrit 29.4 % (37-47); Hemoglobin 9.7 g/dL (12.0-15.0); Mean Corpuscular Hgb 29.9 pg (27.0-32.0); Mean Corpuscular Volume 90.7 fL (81-99); Platelet Count 175 K/mm3 (150-450); RBC Distribution Width SD 46.5 fl (35.1-43.9); Red Blood Count 3.24 M/mm3 (4.2-5.4); White Blood Count 11.2 K/mm3 (4.4-11.0)
[2021-11-06] MEDS: Enoxaparin 40 MG/0.4 ML Syringe SC (10:21)
[2021-11-06] MEDS: Senna/Docusate Sodium 1 Tablet PO (10:23)
[2021-11-06] MEDS: Sertraline 50 MG Tablet PO (10:23)
--- NOTE | 2021-11-06 12:12 | PCM.PROGNOTE ---
Subjective Subjective patient seen at bedside, doing well. Patient reports good pain control. lochia mild. denies ERNANDEZ, visual changes. Denies N/V. Not passing flatus yet. Breast feeding. Objective Data Objective Data Vital Signs: Vital Signs Temp Pulse Resp BP Pulse Ox O2 Del Method 97 F L 81 17 114/59 L 96 Room Air 11/06/21 11:33 11/06/21 12:06 11/06/21 11:33 11/06/21 11:33 11/06/21 12:06 11/06/21 10:35 Oxygen Delivery Method Room Air Weight: 103.6 kg Body Mass Index (BMI) 40.4 Intake & Output: Intake and Output for Last 24 Hours 11/04/21 11/05/21 11/06/21 23:59 23:59 23:59 Intake Total 947.25 / 947.25 2753.33 / 2753.33 Output Total 500 / 500 870 / 870 Balance 447.25 / 447.25 1883.33 / 1883.33 Lab / Micro Data Result Diagrams: 11/06/21 06:12 11/05/21 09:10 Labs: Laboratory Results - last 24 hr 11/05/21 09:10: Sodium 141, Potassium 3.7, Chloride 110 H, Carbon Dioxide 21.0, Anion Gap 10, BUN 6 L, Creatinine 0.69, Estim Creat Clear Calc 98.62, Est GFR (MDRD) Af Amer 128, Est GFR (MDRD) Non-Af 106, BUN/Creatinine Ratio 8.7 L, Glucose 104, Calcium 8.9, Total Bilirubin 0.20, AST 19, ALT 24, Alkaline Phosphatase 110, Total Protein 6.2 L, Albumin 2.7 L, Globulin 3.5, Albumin/Globulin Ratio 0.8 L 11/06/21 06:12: WBC 11.2 H, RBC 3.24 L, Hgb 9.7 L, Hct 29.4 L, MCV 90.7, MCH 29.9, MCHC 33.0, RDW Std Deviation 46.5 H, RDW Coeff of Felecia 14.0, Plt Count 175, MPV 9.0 Micro: Microbiology 11/05/21 08:40 Nasal Secretion SARS-CoV-2 Antigen (Rapid) - Final Physical Exam Narrative Abd: soft, non distended. Dressing dry and intact. Const alert and oriented x3 General Appearance: cooperative HEENT normocephalic Neck General: normal visual inspection GI soft to palpation and non-distended GI Narrative: Fundus firm Extremity normal to inspection and no calf tenderness Skin no rashes or lesions noted Neuro oriented x3 and CN's II-XII intact bilaterally Psych mental status grossly normal Assessment & Plan Assessment/Plan (1) BMI 40.0-44.9, adult: (2) Pre-eclampsia, severe: (3) Delivery by section: PLAN: Plan POD#1 , Doing well continue Mag x 24 hrs post op - then dc monitor VS- BP well controlled. If trending up will restart labetalol pain mgmt monitor VS ambulation
--- NOTE | 2021-11-06 13:48 | NURSING ---
1340 pt oob up to chair pt ambulating in room pt gait steady; pt to chair
[2021-11-06] MEDS: Ibuprofen 600 MG Tablet PO (22:41)
[2021-11-07] VITALS (22 sets, daily range): BP systolic 131–176; BP diastolic 68–107; PULSE 68–96; RESP 16–18; TEMP 36.1–36.7; O2SAT 93–98
--- NOTE | 2021-11-07 02:03 | NURSING ---
pt reports nap and ice have improved headache pain at this time
[2021-11-07] MEDS: Ibuprofen 600 MG Tablet PO ×4 (04:55→22:38)
[2021-11-07] MEDS: Acetaminophen 500 MG Tablet 1000 MG PO ×4 (04:56→22:38)
--- NOTE | 2021-11-07 07:40 | NURSING ---
bedside report given to Marisol Blackwell RN and Jess Espinoza RN who are assuming care of pt at this time
[2021-11-07] MEDS: Sertraline 50 MG Tablet PO (09:35)
[2021-11-07] MEDS: Senna/Docusate Sodium 1 Tablet PO (09:35)
[2021-11-07] MEDS: Enoxaparin 40 MG/0.4 ML Syringe SC (09:35)
[2021-11-07] MEDS: Labetalol 200 MG Tablet PO ×4 (11:19→23:26)
--- NOTE | 2021-11-07 13:51 | PCM.PN.OB ---
Subjective Subjective Denies complaints. Feeling better off magnesium. Objective Data Objective Data Vital Signs: Vital Signs Temp Pulse Resp BP Pulse Ox O2 Del Method 97.1 F L 82 18 139/78 H 98 Room Air 11/07/21 12:38 11/07/21 12:38 11/07/21 12:38 11/07/21 12:38 11/07/21 09:27 11/07/21 12:38 Oxygen Delivery Method Room Air Weight: 228 lb 6.382 oz Body Mass Index (BMI) 40.4 Intake & Output: Intake and Output for Last 24 Hours 11/05/21 11/06/21 11/07/21 23:59 23:59 23:59 Intake Total 947.25 / 947.25 3964.83 / 3964.83 Output Total 500 / 500 1705 / 2205 500 / 500 Balance 447.25 / 447.25 2259.83 / 1759.83 -500 / -500 Lab / Micro Data Attestation: I reviewed the patient's lab results. Result Diagrams: 11/06/21 06:12 11/05/21 09:10 Micro: Microbiology 11/05/21 08:40 Nasal Secretion SARS-CoV-2 Antigen (Rapid) - Final Physical Exam Const alert, oriented x3 and no apparent distress HEENT normocephalic GI soft to palpation, non-tender and non-distended GI Narrative: fundus firm, mid & below umbilicus Extremity normal to inspection and no calf tenderness Assessment & Plan (1) Pre-eclampsia, severe: COMMENT: PPD#1 PLAN: Patient seen this morning and then nurse called with elevated BP's - low 160's/80's. Patient started on labetalol 200mg tid and recent BP's normal. Will continue to monitor. Routine PP care
[2021-11-07] MEDS: 0.9% Saline Lock 10 ML Syringe IV (15:18)
--- NOTE | 2021-11-07 23:03 | NURSING ---
bps elevated x2, 15 mins apart. FOB reports infant was crying with diaper change as BP cuff inflated during 2nd reading. RN rechecked bp as sleeping on pts chest bp then 150/91. pt denies headache, visual disturbance, and epigastric pain. no clonus, patellar and bicep reflexes +1 bilaterally.
[2021-11-08] VITALS (8 sets, daily range): BP systolic 134–153; BP diastolic 80–92; PULSE 66–245; RESP 16–18; TEMP 36.1–36.6; O2SAT 82–99
[2021-11-08] MEDS: Labetalol 200 MG Tablet 400 MG PO ×2 (05:26→14:13)
[2021-11-08] MEDS: Acetaminophen 500 MG Tablet 1000 MG PO ×3 (05:27→18:04)
[2021-11-08] MEDS: Ibuprofen 600 MG Tablet PO ×3 (05:27→18:04)
--- NOTE | 2021-11-08 08:39 | PCM.PN.OB ---
Subjective Subjective Patient denies headache or visual changes. Average lochia. Pain well controlled. Objective Data Objective Data Vital Signs: Vital Signs Temp Pulse Resp BP Pulse Ox O2 Del Method 97.2 F L 104 H 18 145/85 H 99 Room Air 11/08/21 05:20 11/08/21 05:23 11/08/21 05:20 11/08/21 05:20 11/08/21 05:23 11/08/21 05:20 Oxygen Delivery Method Room Air Weight: 103.6 kg Body Mass Index (BMI) 40.4 Intake & Output: Intake and Output for Last 24 Hours 11/06/21 11/07/21 11/08/21 23:59 23:59 23:59 Intake Total 3964.83 / 3964.83 Output Total 1705 / 2205 500 / 500 Balance 2259.83 / 1759.83 -500 / -500 Lab / Micro Data Result Diagrams: 11/06/21 06:12 11/05/21 09:10 Micro: Microbiology 11/05/21 08:40 Nasal Secretion SARS-CoV-2 Antigen (Rapid) - Final Physical Exam Narrative 2+ DTRs, 1+ edema Const alert General Appearance: cooperative GI GI Narrative: soft, moderate distention, fundus firm, appropriately tender. Abdominal bandage clean dry and intact Assessment & Plan (1) Delivery by section: (2) Pre-eclampsia, severe: COMMENT: Postoperative day #3 status post primary section for severe preeclampsia and unfavorable cervix. Had mag prophylaxis that has been discontinued. Has been on labetalol for increased blood pressures . It was increased to 400 mg 3 times daily and she is doing well with this. Desires discharge home today. Will discharge home with close follow-up and home blood pressure monitoring. Follow-up next week or as needed. is breast-feeding and doing well
--- NOTE | 2021-11-08 08:41 | DS.PCM_ITS ---
Providers Date of Admission: 11/05/21 Reason For Visit: Diagnosis Discharge Diagnosis (1) Delivery by section: Status: Acute (2) Pre-eclampsia, severe: Status: Acute Code(s): O14.10 - Severe pre-eclampsia, unspecified trimester Medications at Discharge Home Medications 1 tab PO/SL DAILY 09/19/21 ferrous sulfate 325 mg (65 mg iron) tablet (iron) 325 mg PO DAILY anemia 09/19/21 sertraline 50 mg tablet (Zoloft) 50 mg PO DAILY anxiety/depression 09/19/21 docusate sodium 250 mg capsule (Stool Softener) 250 mg PO DAILY constipation 10/18/21 ibuprofen 600 mg tablet 600 mg PO Q6H PRN PRN pain 10 days #60 TABLETS 11/08/21 labetalol 200 mg tablet 400 mg PO TID #90 tabs 11/08/21 Hospital Course Operations - (Primary low transverse section on 11/05/2021) Procedures None Summary of Care Provided Hospital Course: 31-year-old female admitted for gestational hypertension and induction of labor on 11/06/21. Blood pressures trended up during the initiation of her induction. She also had some significant anxiety regarding pelvic exams and significant discomfort. Patient was counseled on risk benefits and alternatives to continu ing induction on magnesium prophylaxis with severe preeclampsia versus primary section. She elected for primary section. It was performed without difficulty. Postoperatively the patient did well. However her blood pressures continued to trend up. She had some mild acute blood loss anemia consistent with blood loss during the surgery. By postoperative day #3 her blood pressures have stabilized and she was comfortable going home with home blood pressure monitoring and labetalol p.o. with close follow-up. Weight / BMI Weight Weight: 103.6 kg Body Mass Index (BMI) 40.4 ABG / Lab / Microbiology Data Result Diagrams: 11/06/21 06:12 11/05/21 09:10 Microbiology: Microbiology 11/05/21 08:40 Nasal Secretion SARS-CoV-2 Antigen (Rapid) - Final D/C Instructions Discharge Diet: No restrictions May resume sexual activity in: 6 weeks Lifting Restrictions: 15 lb Call your doctor if your incision/area has: Continuous Slow Oozing, Sudden Increased Bleeding, Foul Smelling Discharge and Swelling at the incision site Call your doctor if you observe: Fever of 101 or Higher and Inability to urinate Remove Dressing in: 2 days Cleanse incision/area with: Soap & Water Please Follow Up With: Regine Thakkar MD When: Follow up with our office in 1-2 and 6 weeks or as needed. [phone] Meaningful Use Info Meaningful Use Diagnoses (Choose all that apply): None applicable Discharge Plan Admission Admit Date/Time: 11/05/21 08:30 Primary Reason for Your Visit: Severe preeclampsia and Attending Provider: Regine Thakkar Discharge Orders/Prescriptions Prescriptions: New labetalol 200 mg tablet 400 mg PO TID Qty: 90 0RF ibuprofen [ibuprofen] 600 MG tablet 600 mg PO Q6H PRN PRN (Reason: pain) 10 Days Qty: 60 1RF Continued ferrous sulfate [iron] 325 mg (65 mg iron) Tablet 325 mg PO DAILY sertraline [Zoloft] 50 mg Tablet 50 mg PO DAILY 1 tab PO/SL DAILY docusate sodium [Stool Softener] 250 mg Capsule 250 mg PO DAILY Discontinued aspirin 81 mg Capsule 81 mg PO DAILY Disposition Disposition (needs filled in before D/C Order can be placed): Home, Self Care
[2021-11-08] MEDS: Sertraline 50 MG Tablet PO (10:06)
[2021-11-08] MEDS: Enoxaparin 40 MG/0.4 ML Syringe SC (10:06)
[2021-11-08] MEDS: Senna/Docusate Sodium 1 Tablet PO (10:06)
[2021-11-08 10:09] LABS: Pathology Specimen OB SEE PATHOLOGY REPORT
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
== END 2021-11-08 18:50 | disposition home or self-care (01) | DRG 788 ==
PROVIDERS: Advanced Practice Midwife; Admitting Provider Obstetrics & Gynecology; Visit Provider Obstetrics & Gynecology
DX: O14.14 Severe pre-eclampsia complicating childbirth (principal); O99.214 Obesity complicating childbirth; E28.2 Polycystic ovarian syndrome; F41.9 Anxiety disorder, unspecified; Z37.0 Single live birth; Z3A.37 37 weeks gestation of pregnancy; O99.344 Other mental disorders complicating childbirth; Z86.16 Personal history of COVID-19; O99.284 Endocrine, nutritional and metabolic diseases complicating childbirth; F43.10 Post-traumatic stress disorder, unspecified; F32.A Depression, unspecified; Z79.82 Long term (current) use of aspirin; Z79.899 Other long term (current) drug therapy; O99.02 Anemia complicating childbirth; O34.43 Maternal care for other abnormalities of cervix, third trimester
CPT/HCPCS: 59025; 59050; 80053; 85025; 85027; 86850; 86900; 86901; 87426; 88307; 99218; 99406; J7120; A4216; G0378; J2405

== ENCOUNTER → 2022-05-29 | Outpatient (CLI) | payer BC, SELFPAY ==
--- NOTE | 2022-05-29 13:30 | US_ITS ---
STUDY: ULTRASOUND BREAST - LEFT REASON FOR EXAM: Female, 32 years old. Breast pain, currently breast-feeding TECHNIQUE: Axial and longitudinal images of the LEFT breast were performed with a high resolution ultrasound transducer. # OF IMAGES: 36 COMPARISON: None. FINDINGS: LEFT Breast: Upper inner and lower inner quadrant of the left breast ultrasound performed. Dense fibroglandular tissue noted. There are dilated ducts consistent with patient''s history of currently breast-feeding. There is no suspicious shadowing solid lesion, architectural torsion, or clustered shadowing calcifications. US/Breast Limited Unilateral IMPRESSION: No suspicious sonographic findings ASSESSMENT CATEGORY: BIRADS Category 1: Negative. A letter regarding these results will be sent to the patient by the facility within 30 days. Electronically Signed: Fernando Gonzalez MD at 14:23 EDT ,
== END | disposition home or self-care (01) ==
PROVIDERS: Visit Provider Nurse Practitioner Family
DX: N64.4 Mastodynia (principal)
CPT/HCPCS: 76642